=== PATIENT | female | born 1980 | race Caucasian/White ===

== ENCOUNTER → 2016-06-24 | Outpatient (CLI) | payer OTHER ==
[2016-02-11 11:44] VITALS: BP 137/74
[~2016-06-24] MED LIST: ACET325T9 PO; ALPR1TAB6 PO; CYCL10TA2 PO; FLUT1DIS3 INH; GABA-586 PO; HYDR-971 PO; IBUP-1027 PO; IBUP100O7 PO; LAMO100T PO; NAPR500T PO; Oxycodone Hcl/Acetaminophen PO; VENTOLIN HFA18 GM INH
--- NOTE | 2016-06-24 13:14 | KCIC ---
PROCEDURE MRI study of the right knee without contrast HISTORY Right knee pain. Previous ACL reconstruction in 2016. Pain is medial. New injury. Swelling and instability. TECHNIQUE Noncontrast MRI sequences of the right knee were performed in all 3 planes. COMPARISON December 10, 2015. FINDINGS Anterior cruciate ligament reconstruction is evident and the reconstructed ligament is intact. The posterior cruciate ligament is intact. Postoperative changes of the lower pole of the patella and the patellar tendon is seen secondary to donor site resection for the ACL reconstruction. This is unchanged. The patellar tendon is otherwise intact without complete rupture. The quadriceps tendon is intact. No articular surface tear of the medial or lateral meniscus is seen. The medial collateral ligament is intact and no meniscal capsular separation is seen. The lateral collateral ligament complex and iliotibial band and popliteus tendon are intact. No posterior lateral corner injury is seen. There is new finding of some degenerative cystic change of the posterior aspect of the midportion of the proximal tibial epiphysis between the insertions of the ACL and PCL. No other marrow infiltrative process is seen. No fracture is evident. The previously seen low signal rectangular object within the anterior aspect of the medial tibiofemoral joint compartment is not evident today. There is some paramagnetic susceptibility artifact present within Hoffa's fat pad that may be secondary to previous surgery. No Cyclops lesion is seen. No new loose osteochondral body is evident. No significant joint effusion is seen. No muscle edema is evident. No distended Meraz's cyst is seen. No new focal osteochondral abnormality of the medial or lateral tibiofemoral joint compartments is seen. The patella is normally aligned. There is moderate chondromalacia patellae and thinning of the articular cartilage of the medial patellar facet and apex. There is surface irregularity present as well. 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 The medial and lateral retinacular ligaments are intact. IMPRESSION Since the previous study, the previously noted rectangular loose body within the anterior aspect of the medial joint compartment is not evident today. ACL reconstruction with intact ACL reconstructed ligament and intact PCL. There is a new finding of degenerative cystic changes of the proximal tibial epiphysis between the insertion of the posterior and anterior cruciate ligaments. Chondromalacia patellae and trochlear chondromalacia. No articular surface tear of the medial or lateral meniscus is seen and no ligament or tendon tear is evident otherwise. Electronically signed by: Pedro Mendez MD (Jun 24, 2016 13:11:42)
== END ==
LOC: KCIC MRI 10:49
PROVIDERS: ATTEND Physician Assistant Surgical
DX: M94.261 Chondromalacia, right knee (principal)
CPT/HCPCS: 73721

== ENCOUNTER 2016-08-19 22:11 | Emergency (ER) | payer OTHER ==
[~2016-08-19] VITALS: Ht 160 cm; Wt 84.8 kg
--- NOTE | 2016-08-19 22:30 | PHYS DOC ---
Past Medical History Past Medical History: Anxiety, Asthma, Other Additional Past Medical Histor: PCOS Past Surgical History: Cholecystectomy, Hysterectomy Additional Past Surgical Histo: Pt states she had a baby after her tubal ligation,laproscopy,Umb.hernia. Alcohol Use: Occasionally Drug Use: None Adult General Chief Complaint Chief Complaint: HEADACHE HPI HPI 36-year-old female states she's having severe headache for last 5-6 hours. She states it came on acutely feels like a sledgehammer hit her in the head. She is actively vomiting in the room. EMS was called out for her headache. She states her usual migraine headaches do not present this way. She denies any fever or chills. She is in mild distress but is afebrile upon arrival. She is fully alert and oriented and can follow my commands at this time. She denies any weakness, dizziness, or numbness. Patient is on Imitrex therapy. She denies any significant health problems otherwise. She denies any drug or alcohol use. Review of Systems Review of Systems Constitutional: Denies fever or chills [] Eyes: Denies change in visual acuity, redness, or eye pain [] HENT: Denies nasal congestion or sore throat [] Respiratory: Denies cough or shortness of breath [] Cardiovascular: No additional information not addressed in HPI [] GI: Denies abdominal pain, has nausea, has vomiting, denies bloody stools or diarrhea [] : Denies dysuria or hematuria [] Musculoskeletal: Denies back pain or joint pain [] Integument: Denies rash or skin lesions [] Neurologic: Has headache, focal weakness or sensory changes [] Endocrine: Denies polyuria or polydipsia [] Current Medications Current Medications Current Medications Medications (Trade) Dose Ordered Sig/[facility] Start Time Stop Time Status Last Admin Dose Admin Dexamethasone Sodium Phosphate (Decadron) 10 mg 1X ONCE 08/19/16 23:00 08/19/16 23:01 DC 08/19/16 23:01 10 MG Diphenhydramine HCl (Benadryl) 25 mg 1X ONCE 08/20/16 00:30 08/20/16 00:31 Ketorolac Tromethamine (Toradol) 30 mg 1X ONCE 08/19/16 23:00 08/19/16 23:01 DC 08/19/16 23:02 30 MG Metoclopramide HCl (Reglan) 10 mg 1X ONCE 08/19/16 23:00 08/19/16 23:01 DC 08/19/16 23:02 10 MG Morphine Sulfate 2 mg 1X ONCE 08/20/16 00:30 08/20/16 00:31 Ondansetron HCl (Zofran) 4 mg 1X ONCE 08/19/16 23:00 08/19/16 23:01 DC 08/19/16 22:38 4 MG Sodium Chloride 500 ml @ 500 mls/hr 1X ONCE 08/19/16 23:00 08/19/16 23:59 DC 08/19/16 23:00 500 MLS/HR Allergies Allergies Allergies Coded Allergies Type Severity Reaction Last Updated Verified fentanyl Allergy Severe seizures 02/09/16 Yes Penicillins Allergy Intermediate 01/15/15 Yes amoxicillin Allergy Intermediate Hives 06/18/14 Yes ampicillin Allergy Intermediate 01/15/15 Yes latex Allergy Intermediate Rash 10/19/13 Yes levofloxacin Allergy Intermediate 01/15/15 Yes shellfish derived Allergy Intermediate "SEAFOOD" UNKNOWN REACTION LISTED Yes Physical Exam Physical Exam Constitutional: Well developed, well nourished, no acute distress, non-toxic appearance. [] HENT: Normocephalic, atraumatic, bilateral external ears normal, oropharynx moist, no oral exudates, nose normal. [] Eyes: PERRLA, EOMI, conjunctiva normal, no discharge. [] Neck: Normal range of motion, no tenderness, supple, no stridor. [] Cardiovascular:Heart rate regular rhythm, no murmur [] Lungs & Thorax: Bilateral breath sounds clear to auscultation [] Abdomen: Bowel sounds normal, soft, no tenderness, no masses, no pulsatile masses. [] Skin: Warm, dry, no erythema, no rash. [] Back: No tenderness, no CVA tenderness. [] Extremities: No tenderness, no cyanosis, no clubbing, ROM intact, no edema. [] Neurologic: Alert and oriented X 3, normal motor function, normal sensory function, no focal deficits noted. [] Psychologic: Affect normal, judgement normal, mood normal. [] Current Patient Data Vital Signs Vital Signs Date Time Temp Pulse Resp B/P (MAP) Pulse Ox O2 Delivery O2 Flow Rate FiO2 08/20/16 00:07 70 18 110/70 (83) 92 Room Air 08/19/16 22:24 97.4 97.4 EKG EKG [] Radiology/Procedures Radiology/Procedures []PROCEDURE CT head without contrast HISTORY Severe headache TECHNIQUE Exposure: One or more of the following individualized dose reduction techniques were utilized for this exam: 1. Automated exposure control. 2. Adjustment of the mA and/or kV according to patient size. 3. Use of iterative reconstruction technique. [address] imaging skullbase to vertex COMPARISON MRI brain February 09, 2016 FINDINGS No intracranial hemorrhage, mass, hydrocephalus or infarction. No acute ischemic changes evident. Orbits, mastoids, paranasal sinuses and bones are unremarkable. IMPRESSION No acute intracranial CT abnormality. Electronically signed by: Chris Frost MD (August 19, 2016 22:38:07) Course & Med Decision Making Course & Med Decision Making Pertinent Labs and Imaging studies reviewed. (See chart for details) This 36-year-old female presenting with a severe headache that acutely started approximately 5-6 hours ago will have an IV placed and fluid and Zofran administered. Patient will be expedited to CT to rule out any acute bleed. As the patient is within a 6 hour window of her symptoms, this is highly sensitive. If negative, I will treat her with traditional migraine cocktail. She is afebrile and has no meningeal signs. There is no indication to perform any laboratory workup at this time. CT of her head is unremarkable. I will be administering migraine cocktail and reassessing the patient. Her pain is mildly improved after migraine cocktail. I will redose the patient with Benadryl and discharge her home to follow closely with her primary care doctor. Dragon Disclaimer Dragon Disclaimer This electronic medical record was generated, in whole or in part, using a voice recognition dictation system. Departure Departure Impression: Primary Impression: Migraine Disposition: 01 HOME, SELF-CARE Admitting Physician: Other Condition: IMPROVED Referrals: GIDEON MANUEL MD (PCP) Patient Instructions: Migraine Headache Additional Instructions: Please follow up with your primary doctor in the next 2-3 days for your headache. Remain in a quiet, dark room for the next 24 hours. Return to the ER if you develop any worsening of your symptoms. FADY SHARIF DO August 19, 2016 22:30
--- NOTE | 2016-08-19 22:39 | RAD ---
PROCEDURE CT head without contrast HISTORY Severe headache TECHNIQUE Exposure: One or more of the following individualized dose reduction techniques were utilized for this exam: 1. Automated exposure control. 2. Adjustment of the mA and/or kV according to patient size. 3. Use of iterative reconstruction technique. [address] imaging skullbase to vertex COMPARISON MRI brain February 09, 2016 FINDINGS No intracranial hemorrhage, mass, hydrocephalus or infarction. No acute ischemic changes evident. Orbits, mastoids, paranasal sinuses and bones are unremarkable. IMPRESSION No acute intracranial CT abnormality. Electronically signed by: Chris Frost MD (August 19, 2016 22:38:07)
[2016-08-19] MEDS ORDERED: ONDANSETRON PF 4 MG/2 ML VIAL. IV ONE (23:00)
[2016-08-19] MEDS ORDERED: METOCLOPRAMIDE HCL 10 MG/2 ML VIAL. IV ONE (23:00)
[2016-08-19] MEDS ORDERED: DEXAMETHASONE SOD PHOS 20 MG/5 ML VIAL. IV ONE (23:00)
[2016-08-19] MEDS ORDERED: IV NORMAL SALINE 1000ML BAG 1,000 ML IV ONE (23:00)
[2016-08-19] MEDS ORDERED: KETOROLAC TROMETHAMINE 30 MG/ML INJ. IV ONE (23:00)
[2016-08-19] MEDS ORDERED: IV NORMAL SALINE 500ML BAG 500 ML IV ONE (23:00)
[2016-08-19] MEDS ORDERED: diphenhydrAMINE 50 MG/ML VIAL IVP ONE (23:00)
[2016-08-20] MEDS ORDERED: MORPHINE SULFATE 2 MG/ML DISP.SYRIN. IV ONE (00:30)
[2016-08-20] MEDS ORDERED: diphenhydrAMINE 50 MG/ML VIAL IVP ONE (00:30)
[2016-08-20 01:00] VITALS: BP 100/62
== END 2016-08-20 01:05 | disposition home or self-care (01) ==
LOC: ER 22:11
DX: G43.909 Migraine, unspecified, not intractable, without status migrainosus (principal); E28.2 Polycystic ovarian syndrome; F41.9 Anxiety disorder, unspecified; J45.909 Unspecified asthma, uncomplicated; Z90.49 Acquired absence of other specified parts of digestive tract; Z90.710 Acquired absence of both cervix and uterus; Z88.0 Allergy status to penicillin; Z88.8 Allergy status to other drugs, medicaments and biological substances; Z88.1 Allergy status to other antibiotic agents; Z91.040 Latex allergy status; Z91.013 Allergy to seafood
CPT/HCPCS: 70450; 96361; 96374; 96375; 96376; 99285; J1100; J1200; J1885; J2270; J2405; J2765; J7030; J7040; 99284-25